=== PATIENT | female | born 1935 | race Asian ===

== ENCOUNTER 2019-01-12 11:47 | Inpatient (IN) | payer OTHER ==
[~2019-01-12] VITALS: Ht 152.4 cm; Wt 40.8 kg
[2019-01-12 11:49] VITALS: Ht 152.4 cm; Wt 40.8 kg
--- NOTE | 2019-01-12 12:04 | NUR ---
PT BIB [facility] FOR L SHOULDER/ARM PAIN AND L HIP PAIN S/P FALL YESTERDAY AT HOME. +PSC LIMITED MOVEMENT DUE TO PAIN, +SHORTENING AND EXTERNAL ROTATION NOTED. NO OBVIOUS BRUISING OR TRAUMA. PT GOWNED PLACED ON CM PT AAOX4 IN NO DISTRESS. MSE COMPLETED BY DR MOSHER. AWAITING MD ORDERS WILL MONITOR
--- NOTE | 2019-01-12 12:08 | NUR ---
PT TO XRAY VIA [facility]
--- NOTE | 2019-01-12 12:47 | NUR ---
PT MEDICATED PER MD ORDERS SEE EMAR. PT WITH URGE TO VOID. BED LOCK PROVIDED.
[2019-01-12 12:49] LABS: PLATELET COUNT 168 x10^3mcL (130-400)
[2019-01-12 12:50] LABS: BASOPHIL % 0 % (0-2)
[2019-01-12 13:03] LABS: ALBUMIN 3.8 g/dL (3.4-5.0); ALKALINE PHOSPHATASE 110 U/L (46-116); ALT/SGPT 33 U/L (14-59); AST/SGOT 32 U/L (15-37); BILIRUBIN TOTAL 1.28 mg/dL (0.20-1.00); CALCIUM 9.1 mg/dL (8.5-10.1); CARBON DIOXIDE 26.5 mmol/L (21-32); CHLORIDE SERUM 102 mmol/L (98-107); CREATININE SERUM 0.7 mg/dL (0.6-1.0); GLUCOSE SERUM 154 mg/dL (74-106); SODIUM SERUM 137 mmol/L (136-145); TOTAL PROTEIN, SERUM 7.3 g/dL (6.4-8.2)
[2019-01-12 13:06] LABS: POTASSIUM SERUM 5.7 mmol/L (3.5-5.1)
--- NOTE | 2019-01-12 14:12 | NUR ---
REPORT GIVEN TO RULA BARBER IN MED SURG FLOOR
--- NOTE | 2019-01-12 14:20 | NUR ---
PT TO MED SURG FLOOR VIA GURNEY TRANSPORTED BY [facility] IN NO DISTRESS. RULA RN RESUMING CARE OF PT.
--- NOTE | 2019-01-12 14:24 | NUR ---
RECEIVED PT [facility]IA [employer] FROM E/D, ACCOMPANIED BY TRANSPORTER AND PT'S FRIEND, DIRK STACK. PT A/A/O X 4, CALM, COOPERATIVE; WEARS GLASSES (W/ PT). DENIES CHEST PAIN OR DISCOMFORT AT THIS TIME. PT IS S/P FALL 01/11/19 AND SUFFERED FX TO L HUMERAL HEAD/NECK AND INTERTROCHANTERIC FX OF L FEMUR; PT W/ L-SIDED WEAKNESS BECAUSE OF THIS, FALL RISK PROTOCOL AND BED TRAPEZE IN PLACE; C/O INT SHARP L SHOULDER/HIP PAIN 10/20, EXACERBATED BY MOVEMENT, RELIEVED BY PAIN MEDICATION AND REST; PULSES PRESENT, +1 EDEMA TO L SHOULDER/HIP, SCD BY BEDSIDE; SKIN INTACT. PT WEARS FULL UPPER AND LOWER DENTURES. IV SIT RAC 22G, CDI. ORIENTED PT AND FRIEND TO ROOM, BED CONTROLS, CALL LIGHT SYSTEM. SIDE RAILS UP X 2, BED IN LOW POSITION. WILL ENDORSE TO ELISABETH HE.
[2019-01-12 14:50] LABS: T3 TOTAL 0.79 ng/mL
[2019-01-12 14:58] LABS: CHOLESTEROL/HDL RATIO 1.5
[2019-01-12 15:06] LABS: T4(THYROXINE) 8.2 ug/dL (4.7-13.3)
[2019-01-12 15:08] VITALS: BP 167/72
--- NOTE | 2019-01-12 17:02 | NUR ---
PHYSICAL THERAPY NOTE ASSEMBLED OVERHEAD TRAPEZE REQUESTED. NURSING AWARE.
--- NOTE | 2019-01-12 17:18 | NUR ---
AT 1515 - TOOK OVER CARE OF PATIENT. PATIENT IS AWAKE, ALERT AND ORIENTED X 4. FAMILY MEMBERS AT BEDSIDE. IV CURRENTLY INFUSING D5 1/2 NS AT 70 ML/HR. NOTED AREA OF ECCYMOSIS AND EDEMA ON LEFT HIP. PATIENT PLACED ON AIR MATTRESS AND POSITIONED FOR COMFORT. PATIENT HAS ORDER FOR KIRKPATRICK CATHETER INSERTION BUT PATIENT AND FAMILY REFUSING CATHETER. THEY SAY THAT PATIENT CAN USE BEDPAN INSTEAD. SEEN BY DR TEJADA. NEW ORDERS RECEIVED. PATIENT TO HAVE SURGERY ON THURSDAY. AT 1600 - GIVEN CARDIZAM SCHEDULED PER EMAR. MEDICATED FOR PAIN WITH IV MORPHINE. AT 1615 - PATIENT FITTED WITH LEFT ARM SLING PER ORDERS.
--- NOTE | 2019-01-12 17:28 | NUR ---
PHYSICAL THERAPY HAS SET UP OVER THE BED TRAPEZE FOR PATIENT USE.
[2019-01-12 17:32] VITALS: BP 155/74
--- NOTE | 2019-01-12 18:16 | NUR ---
PATIENT EATING DINNER. PATIENT APPEARS UNDER CONTROL AT THIS TIME. WILL ENDORSE CARE TO NIGHT NURSE.
--- NOTE | 2019-01-12 20:15 | NUR ---
COLLECTED URINE SPEC FOR UA + C&S SENT TO LAB.
--- NOTE | 2019-01-12 20:38 | NUR ---
PT AAO X4 VERBAL ABLE TO MAKE NEEDS KNOWN, WITH OVERHEAD TRAPEZE PT HAS LT HIP FRACTURE SUSTAINED FROM RECENT FALL, PLANNED SURGERY ON THURSDAY, SON SIGNED THE CONSENT FOR SURGERY EXPLAINED BY DR TEJADA, PT ALSO HAS LT SHOULDER SLING, FOR LT SHOULDER FX, NO C/O PAIN WHEN IMMOBILE, NO DISTRESS LUNGS CTA, AIR MATTRESS UTILIZED, FOR SKIN MANAGEMENT, IVF INFUSING WELL ORDERED, IV ACCESS RAC PATENT NON INFIL, SHIFT ASSESSMENT DONE, CONT TO MONITOR.
[2019-01-12 22:00] VITALS: BP 108/52
[2019-01-12 22:50] LABS: microscopic required? NO
--- NOTE | 2019-01-12 22:57 | NUR ---
PT AGREES TO HAVE KIRKPATRICK CATH INITIATION, TAMY WELL ASEPTIC TECHNIQUE OBSERVED, HAS YELLOW COLORED URINE OUTPUT, F/C SECURED.
[2019-01-12 23:21] LABS: UA SPECIFIC GRAVITY 1.015 (1.005-1.035); urine erythrocyte NEGATIVE (NEGATIVE)
--- NOTE | 2019-01-13 03:53 | NUR ---
PT SOUND ASLEEP NO S/SX OF PAIN OR DISCOMFORTS, IVF INFUSING WELL ORDERED UTIIZED OVERHEAD TRAPEZE, IVF INFUSING WELL ORDERED, VISUAL CHECKED AT INTERVALS.
[2019-01-13 05:11] VITALS: BP 113/65
--- NOTE | 2019-01-13 06:30 | NUR ---
PT SLEPT WELL DURING THE SHIFT, NO S/SX OF PAIN NO DISTRESS LUNGS CTA, IVF INFUSING WELL ORDERED, PUTTING OUT 1200 CC FROM KIRKPATRICK CATH YELLOW COLORED REPOSITIONED TO COMFORT, NO SIGNIFICANT CHANGES, CONT TO MONITOR.
--- NOTE | 2019-01-13 07:45 | NUR ---
AT 0700 - RECEIVED PATIENT FROM NIGHT NURSE. SLEEPING. RESPIRATIONS REGULAR. IV INFUSING NS AT 50 ML/HR. KIRKPATRICK CATHETER DRAINIGN YELLOW URINE. LEFT ARM IN SLING. PATIENT IS ON AIR MATTRESS.
[2019-01-13 08:32] VITALS: BP 124/59
[2019-01-13 09:56] LABS: BASOPHIL % 0.4 % (0-2); RED CELL DISTRIBUTION WIDTH 14.3 % (11.5-14.5)
--- NOTE | 2019-01-13 10:08 | NUR ---
PATIENT RESTING QUIETLY. WAS ABLE TO EAT BREAKFAST. NO C/O PAIN AT THIS TIME.
[2019-01-13 10:09] LABS: PLATELET COUNT 115 x10^3mcL (130-400)
[2019-01-13 10:46] LABS: CALCIUM 8.7 mg/dL (8.5-10.1); CARBON DIOXIDE 27.8 mmol/L (21-32); CHLORIDE SERUM 103 mmol/L (98-107); CREATININE SERUM 0.8 mg/dL (0.6-1.0); GLUCOSE SERUM 121 mg/dL (74-106); MAGNESIUM 1.9 mg/dL (1.8-2.4); PHOSPHOROUS 3.3 mg/dL (2.5-4.9); POTASSIUM SERUM 4.4 mmol/L (3.5-5.1); SODIUM SERUM 137 mmol/L (136-145)
--- NOTE | 2019-01-13 12:23 | NUR ---
SEEN BY DR PAUL AND MEDICAL TEAM DOCTORS DURING ROUNDS. SPOKE WITH PATIENT REGADING PLAN OF CARE. PATIENT REPORTS MINIMAL PAIN AT REST, THIS TIME.
--- NOTE | 2019-01-13 15:16 | NUR ---
SEEN BY DR ENRIQUEZ. PATIENT HAS CARDIAC CLEARANCE FOR SURGERY TOMORROW.
[2019-01-13 17:43] VITALS: BP 125/50
--- NOTE | 2019-01-13 18:05 | NUR ---
PATIENT RESTING QUIETLY. REPORTS MINIMAL PAIN. DECLINED PAIN MEDICATION. VSS. IV INFUSING NS AT 50ML/HR. 400 ML URINE OUTPUT THIS SHIFT. FAMILY AT BEDSIDE. FAMILY ASSISTS PATIENT WITH MEALS. TO BE NPO AFTER MIDNIGHT. WILL ENDORSE CARE TO NIGHT NURSE.
--- NOTE | 2019-01-13 20:02 | NUR ---
RECEIVED AWAKE IN BED , ALERT AND RESPONSIVE TO VERBAL STIMULI. SKIN WARM AND DRY TO TOUCH WITH ECCHYMOSIS TO LEFT THIG AND GILBERTO ,WITH LEFT ARM SLING IN PLACE. RESPIRATION EVEN AND UNLABORED. NO S/S OF ACUTE DISTRESS. KIRKPATRICK CATH TO BSD WITH BRYON COLORED URINE OUTPUT. IV SITE AT RAC LEAKING WITH REDNESS AROUND THE SITE. IV NEEDLE REMOVED , PT TOLERATED PROCEDURE WELL. PLACED CALL LIGHT WITHIN REACH.
--- NOTE | 2019-01-13 20:10 | NUR ---
STARTED A NEW IV ACCESS AT THE RFA USING G#20 WITH GOOD BLOOD FLOW RETURN, PT TOLERATED PROCEDURE WELL. IVF NS RESUMED AT 50ML/HR ORDERED .
[2019-01-13 20:52] VITALS: BP 119/48
--- NOTE | 2019-01-13 21:00 | NUR ---
C/O SEVERE PAIN AT THE LEFT HIP ON SCALE 8/10, MORPHINE 2MG IVP PRN MEDICATION. HEPARIN ON HOLD FOR [address] ROGERS , PT WILL HAVE SURGERY IN AM. PT MADE AWARE.
--- NOTE | 2019-01-13 23:50 | NUR ---
C/O NO BM FOR 2DAYS, PT EXPRESSED THE DESIRE TO HAVE BM BEFOR SURGERY IN AM . SUKHDEV ROGERS MADE AWARE WITH NEW ORDER AWAITNG FOR PHARMACY TO VERIFY THE NEW ORDERED MEDICATION.
--- NOTE | 2019-01-14 00:03 | NUR ---
MOM 30ML GIVEN PO PRN MEDICATION, WILL CONTINUE TO MONITOR.
--- NOTE | 2019-01-14 01:00 | NUR ---
ASSISTED WITH BEDPAN , PT CLAIMED WITH URGE TO HAVE BM, HOB EELVATED AT 45 DEGREES. CONTINUES ON IVF NS AT 50ML/HR TOLERATING WELL. NO BM NOTED. KEPT CLEAN AND DRY.
--- NOTE | 2019-01-14 02:05 | NUR ---
NO BASELINE CHAEST X-RAY, DR ROGERS MADE AWARE , NEW ORDER FOR CHEST X-RAY REQUESTED, WILL CONTINUE TO MONITOR.
[2019-01-14 05:15] VITALS: BP 125/59
--- NOTE | 2019-01-14 05:33 | NUR ---
NO BM YET AT THIS TIME, REMAINS NPO AFTER MIDNITE FOR ORLF LEFT HIP TODAY AT 0730 AM. IVF NS AT 50ML/HR INFUSING WELL VIA PERIPHERAL LINE AT THE RIGHT FOREARM. NO SWELLING/NO REDNESS NOTED AT THE IV SITE.
--- NOTE | 2019-01-14 06:30 | NUR ---
CHG BATH GIVEN , TOLERATED WELL.
--- NOTE | 2019-01-14 06:50 | NUR ---
REPORT GIVEN TO ALBERT. STRAUSS LOCKED, TO OR VIA BED ACCOMPANIED BY OR STAFFS. VITAL SIGNS STABLE.
--- NOTE | 2019-01-14 06:55 | NUR ---
PT TAKEN FOR PROCEDURE. NO S/S OF ACUTE DISTRESS. ENDORSED TO OR BY NOC ELISABETH SHARPE. TAKEN BY EDWIGE BY INFORMATION CLERK BROKERAGE KELLY.
[2019-01-14 07:54] LABS: BASOPHIL % 0.4 % (0-2)
[2019-01-14 07:59] LABS: CALCIUM 8.1 mg/dL (8.5-10.1); CARBON DIOXIDE 23.6 mmol/L (21-32); CHLORIDE SERUM 107 mmol/L (98-107); CREATININE SERUM 0.5 mg/dL (0.6-1.0); GLUCOSE SERUM 100 mg/dL (74-106); MAGNESIUM 2.2 mg/dL (1.8-2.4); PHOSPHOROUS 2.4 mg/dL (2.5-4.9); POTASSIUM SERUM 3.7 mmol/L (3.5-5.1); SODIUM SERUM 140 mmol/L (136-145)
[2019-01-14 08:09] LABS: PLATELET COUNT 111 x10^3mcL (130-400)
[2019-01-14 09:45] VITALS: BP 129/67
--- NOTE | 2019-01-14 09:45 | NUR ---
PT BACK FROM PROCEDURE. AWAKE, ALERT, ORIENTED X4. NO S/S OF ACUTE DISTRESS. NO C/O PAIN. NO SOB ON 1LNC. O2 SAT 96%. RR EVEN/UNLABORED. CHEST EXPANSION SYMMETRICAL. NO CHEST PAIN. MED SURG. CALM/COOPERATIVE. IV WNL TO RFA, PATENT AND FLUSHES WELL. IV FLUIDS FLOWING. SCDS IN PLACE. S/P ORIF LEFT HIP. DRESSINGS IN PLACE X2. CDI. SPLINT TO LUE IN PLACE. FACE SYMMETRICAL. SPEECH CLEAR. NO DAVIS. NO DIZZINESS. NO N/V. TRAPEZE IN PLACE. FALL PRECAUTIONS IN PLACE. BED IN LOW POSITION. CALL LIGHT WITHIN REACH. SON AND FRIEND AT BEDSIDE. SIDE RAILS UP X2. INSTRUCTED TO USE CALL LIGHT TO CALL FOR ASSISTANCE PRN. VERBALIZED UNDERSTANDING. WILL CONT. TO MONITOR.
[2019-01-14 11:41] VITALS: BP 122/52
--- NOTE | 2019-01-14 12:00 | NUR ---
PT LAYING IN BED. AA/OX4. NO S/S OF ACUTE DISTRESS. NO C/O PAIN AT THIS TIME. NO FEVER. NO CHILLS. NO SOB ON 1LNC. NO CHEST PAIN. CALM/COOPERATIVE. DRESSING TO RLE CDI. IV WNL, IV FLUIDS FLOWING. TRAPEZE IN PLACE. FRIEND AT BEDSIDE. BED IN LOW POSITION. CALL LIGHT WITHIN REACH. WILL CONTINUE TO MONITOR.
--- NOTE | 2019-01-14 13:50 | NUR ---
1. Recommend continuing regular diet at this time
--- NOTE | 2019-01-14 13:50 | NUR ---
Initial Nutrition Assessment: 251/B PAUL LINDSAY IA HR Dx: Left hip fracture PMHx: HTN, RA, Osteoporosis PSHx: none Labs: P 2.4L, HGB 8.5L Meds: Cardizem, Colace, morphine, norco, zofran Diet: NPO for sx PO intake since admission: (01/13) lunch 100%, breakfast 40%, (01/12) dinner 50% Ht: 152.4cm (60") Wt: 40.8 kg (89#) BMI: 17.6 kg/m2 Bed scale: 40.7 kg IBW: 100# (45 kg) %IBW: 89 UBW: 40-41 kg Age: 83/F Food Allergies: NKFA Skin: ecchymosis, L thigh Darius: 16 Edema: L thigh, GILBERTO GI: Last BM: 01/11 Pt is a 83-year-old Mohawk speaking female with PMH of HTN, RA and Osteoarthritis who was brought in by a ambulance for left-sided shoulder and left-sided hip pain after mechanical ground level fall that happened yesterday. RD Note (01/14): Patient's son was at bedside who spoke Serbian and said that patient was NPO for surgery but is now very hungry post-op. She does not c/o N/V/D/C at this time. Spoke with YUSUF Nicole to advance her diet. Diet was advanced to regular. Problem with: N/V/D/C: none at this time Problems with: Chewing: Swallowing: none Current appetite: good Recent wt change: none %wt change: n/a Vitamin/Supplement use: vitamin D, C Special diet at home: Regular Physical activity: sedentary Nutrition education given: none provided at this time. Patient did not have any diet/nutrition related questions. Food-drug interactions: none Education given: n/a Estimated Nutritional Needs Based on current body weight (40.8 kg) Energy: 7521-6868 kcal/day (30-35 kcal/kg for weight gain) Protein: 49-57 g/day (1.2-1.4 g/kg for geriatric maintenance, preserve LBM) Fluid: 0249-6561 mL/day (1 mL/kcal) Nutrition Diagnosis: 1. Malnutrition related to advanced age, falls as evidenced by BMI 17.6 kg/m2 Intervention 1. Recommend continuing regular diet at this time Monitor/Evaluate Goal: PO intake at least 75% of estimated needs Monitor: PO intake, Labs, GI function F/U in 2-3 days as high risk 01/16-
--- NOTE | 2019-01-14 14:45 | NUR ---
PT COMPLAINED OF LLE PAIN AT SURGICAL SITE, WORSE WITH MOVEMENT. RATES 6/10, CONTINUOUS, GIVEN PO PAIN MED, SEE MAR. PT REASSESS, FOUND RESTING IN BED WITH BOTH EYES CLOSED. NO S/S OF PAIN. CALM/COOPERATIVE. IV WNL TO RFA, PATENT AND FLUSHES WELL. IV FLUIDS FLOWING. FALL PREC. IN PLACE. TRAPEZE IN PLACE. SCDS TO BLE. KIRKPATRICK IN TACT DRAINING TO GRAVITY. BED IN LOW POSITION. CALL LIGHT WITHIN REACH. WILL CONTINUE TO MONITOR.
[2019-01-14 16:26] VITALS: BP 113/48
--- NOTE | 2019-01-14 17:12 | NUR ---
RESTING IN BED WITH BOTH EYES CLOSED. NO S/S OF ACUTE DISTRESS. NO S/S OF PAIN. CALM/COOPERATIVE. DRESSING TO LLE CDI. SLING IN PLACE TO LUE. IV WNL TO RFA, IV FLUIDS FLOWING. FALL PREC IN PLACE. SIDE RAILS UP X2. NO N/V. NO SOB ON ROOM AIR. NO CHEST PAIN. TRAPEZE IN PLACE. BED IN LOW POSITION. CALL LIGHT WITHIN REACH. WILL CONTINUE TO MONITOR.
--- NOTE | 2019-01-14 18:42 | NUR ---
PT LAYING IN BED EATING DINNER. AA/OX4. NO S/S OF ACUTE DISTRESS. C/O MILD PAIN TO LLE, RATES 4/10, WORSE WITH MOVEMENT. REPORTS TOLERABLE AT THIS TIME. NO S/S OF ACUTE DISTRESS. NO SOB ON ROOM AIR. IV WNL, IV FLUIDS FLOWING. FALL PREC IN PLACE. NO CHEST PAIN. PT CALM/COOPERATIVE. FRIEND AT BEDSIDE. TRAPEZE IN PLACE. BED IN LOW POSITION. CALL LIGHT WITHIN REACH. WILL ENDORSE TO ONCOMING SHIFT.
--- NOTE | 2019-01-14 19:06 | NUR ---
PT C/O OF TO LLE, CONTINUOUS. WORSE WITH MOVEMENT. RATES 6/10. PULSES +2 BLE/BLE. CAP REFILLS <3 SEC BUE/BLE. ABLE TO MOVE FINGERS/TOES. SLING IN PLACE TO LUE. DRESSING CDI TO LLE. PT CALM/COOPERATIVE. BED IN LOW POSITION. CALL LIGHT WITHIN REACH. WILL ENDORSE TO ONCOMING SHIFT.
--- NOTE | 2019-01-14 20:00 | NUR ---
RECEIVED PT IN BED, RESTING QUIETLY. A/O X4. DENIES HEADACHE/DIZZINESS. RESP. EVEN AND UNLABORED. ON ROOM AIR, NO ACUTE DISTRESS NOTED. AFEBRILE AND VITAL SIGNS STABLE/ DENIES PAIN OR ANY DISCOMFORT AT THIS TIME. LT HIP DRESSINGS DRY AND INTACT. ECCHYMOSIS TO LUE AND LLE. ON AIR MATTRESS, LT ARM SLING IN PLACE, KEPT COMFORTABLE IN BED. ABLE TO MOVE ALL EXTS. PEDAL PULSES PALPABLE. KIRKPATRICK CATH INTACT AND DRAINING YELLOW COLOR URINE. IVF, NS AT 50ML/HR, INTACT AND INFUSING VIA RFA, SITE CLEAR. CALL LIGHT WITHIN REACH. WILL CONTINUE TO MONITOR.
[2019-01-14 20:52] VITALS: BP 105/54
[2019-01-15] VITALS (7 sets, daily range): BP systolic 103–125; BP diastolic 43–54
--- NOTE | 2019-01-15 01:44 | NUR ---
RESTING QUIETLY IN BED, WITH EYES CLOSED, APPEARS ASLEEP, EASILY AROUSABLE. RESP. EVEN AND UNLABORED. ON ROOM AIR, NO ACUTE DISTRESS NOTED. IVF INTACT AND INFUSING WELL, SITE CLEAR. REPOSITIONED FOR COMFORT. CALL LIGHT WITHIN REACH. WILL CONTINUE TO MONITOR.
--- NOTE | 2019-01-15 06:13 | NUR ---
SLEPT WELL. NO COMPLAINTS NOTED DURING THE NIGHT. RESP. EVEN AND UNLABORED. NO ACUTE DISTRESS NOTED. AFEBRILE AND VITAL SIGNS STABLE. NO COMPLAINTS OF PAIN OR ANY DISCOMFORT. DUE MEDS GIVEN ORDERED, TAMY. WELL. KIRKPATRICK CATH INTACT AND PATENT. TURNED AND REPOSITIONED . CARE DONE. KEPT COMFORTABLE. HIP DRESSINGS, DRY AND INTACT. IVF INTACT AND INFUSING WELL, SITE CLEAR. CALL LIGHT WITHIN REACH. WILL CONTINUE TO MONITOR.
[2019-01-15 06:42] LABS: CALCIUM 7.4 mg/dL (8.5-10.1); CARBON DIOXIDE 25.5 mmol/L (21-32); CHLORIDE SERUM 107 mmol/L (98-107); CREATININE SERUM 0.6 mg/dL (0.6-1.0); GLUCOSE SERUM 109 mg/dL (74-106); POTASSIUM SERUM 4.9 mmol/L (3.5-5.1); SODIUM SERUM 140 mmol/L (136-145)
--- NOTE | 2019-01-15 07:37 | NUR ---
PT LYING IN BED A/A. BREATHING EQUAL/ UNLABORED ON RA. NO REDNESS/ SWELLING TO IV SITE. NS RUNNING AT 50ML/HR. SURGICAL DRESSINGS TO L. LEG. CDI. DAMION HAS SLING IN PLACE. PT C/O MILD L. SHOULDER PAIN, COMFORT MEASURES IMPLEMENTED. BED IN LOW POSITION, CALL LIGHT IN REACH, FALL PRECAUTIONS IN PLACE. WILL CONTINUE TO [facility]
[2019-01-15 09:02] LABS: BASOPHIL % 0.8 % (0-2)
[2019-01-15 09:04] LABS: PLATELET COUNT 119 x10^3mcL (130-400)
[2019-01-15 11:23] LABS: rbc morphology (normal/abnorm) ABNORMAL (NORMAL)
--- NOTE | 2019-01-15 12:31 | NUR ---
PT BLOOD TRANSFUSION STARTED, RUNNING AT 60ML/HR. VSS. PT EDUCATED REGARDING S/SX AND REACTIONS PRIOR TO STARTING. NO ADVERSE REACTIONS NOTED AT THIS TIME. WILL CONTINUE TO MONITOR
--- NOTE | 2019-01-15 15:42 | NUR ---
PT BLOOD TRANSFUSION DONE, VSS. NO ADVERESE EVENTS NOTED. BED IN LOW POSITION, CALL LIGHT IN REACH, FAMILY AT BED SIDE. WILL CONTINUE TO MONITOR
--- NOTE | 2019-01-15 16:23 | NUR ---
PT REPOSITIONED TO R. SIDE, ON AIR MATRESS, PRESSURE OFFLOADING TO BLE. PT STATED THAT SHE ONLY WANTS TO BE TURNED 1 HR AFTER SHE RECEIVES PAIN MEDICATION. DAUGHTER PRESENT AT BED SIDE. WILL CONTINUE TO MONITOR
--- NOTE | 2019-01-15 17:49 | NUR ---
KIRKPATRICK CARE PROVIDED TO PT. KIRKPATRICK FLOWING TO GRAVITY. URINE CLEAR/ YELLOW. NO C/O PAIN/ DISCOMFORT AT THIS TIME. WILL CONTINUE TO MONITOR
--- NOTE | 2019-01-15 18:47 | NUR ---
PT LYING IN BED A/A. BRETHING EQUAL/ UNLABORED ON 1L VIA NC. IVF RUNNING AT 50ML/HR. NO REDNESS/ SWELLING TO IV SITE. KIRKPATRICK FLOWING TO GRAVITY. SURGICAL DRESSINGS CDI. L. ARM SLING IN PLACE. PT C/O PAIN WHEN MOVING. PT REFUSED PAIN MEDICATIONS/ REPOSITION AT THIS TIME. PT ON AIR MATRESS/ OFFLOADING TO BLE. SCD'S IN PLACE. BED IN LOW POSITION, CALL LIGHT IN REACH, FRIEND AT BEDSIDE. WILL ENDORSE TO ON COMING SHIFT
--- NOTE | 2019-01-15 20:00 | NUR ---
RECEIVED PT IN BED, ALERT AND ORIENTED. ABLE TO VERBALIZE NEEDS. RESP. EVEN AND UNLABORED. LUNG SOUNDS CLEAR BILAT. 02 AT 2L/MIN VIA NC, SAT. 99%. DENIES SOB. NO ACUTE DISTRESS NOTED. AFEBRILE AND VITAL SIGNS STABLE. DRESSINGS TO LT HIP , DRY AND INTACT. NO COMPLAINTS OF PAIN OR ANY DISCOMFORT AT THIS TIME. LT ARM SLING IN PLACE,ON AIR MATTRESS.ABLE TO MOVE EXTS. REPOSITIONED FOR COMFORT.KIRKPATRICK CATH INTACT AND DRAINING YELLOW URINE. IVF, NS AT 50ML/HR, INTACT AND INFUSING VIA RFA, SITE CLEAR. CALL LIGHT WITHIN REACH. WILL CONTINUE TO MONITOR.
--- NOTE | 2019-01-15 22:02 | NUR ---
COMPLAINED OF LT HIP SURG. SITES PAIN, 5/10, MEDICATED WITH NORCO ORDERED WITH RELIEF. WILL CONTINUE TO MONITOR.
--- NOTE | 2019-01-16 01:08 | NUR ---
EYES CLOSED, APPEARS ASLEEP, EASILY AROUSABLE. RESP. EVEN AND UNLABORED. NO ACUTE DISTRESS NOTED. CALL LIGHT WITHIN REACH. WILL CONTINUE TO MONITOR.
[2019-01-16 05:18] VITALS: BP 126/61
[2019-01-16 06:29] LABS: BASOPHIL % 0.6 % (0-2)
[2019-01-16 06:42] LABS: PLATELET COUNT 125 x10^3mcL (130-400); RED CELL DISTRIBUTION WIDTH 15.3 % (11.5-14.5)
--- NOTE | 2019-01-16 06:44 | NUR ---
AFEBRILE AND VITAL SIGNS STABLE. RESP. EVEN AND UNLABORED. NO ACUTE DISTRESS NOTED.SLEPT WELL. DUE MEDS GIVEN ORDERED, TAMY. WELL. DRESSINGS TO LT HIP, DRY AND INTACT. TURNED AND REPOSITIONED Q2HRS AND PRN. KIRKPATRICK CATH INTACT AN DPATENT. CARE DONE. KEPT COMFORTABLE. IVF INTACT AND INFUSING WELL, SITE CLEAR.WILL ENDORSE TO INCOMING NURSE.
[2019-01-16 06:58] LABS: CALCIUM 7.2 mg/dL (8.5-10.1); CARBON DIOXIDE 24.8 mmol/L (21-32); CHLORIDE SERUM 107 mmol/L (98-107); CREATININE SERUM 0.5 mg/dL (0.6-1.0); GLUCOSE SERUM 91 mg/dL (74-106); POTASSIUM SERUM 4.4 mmol/L (3.5-5.1); SODIUM SERUM 139 mmol/L (136-145)
--- NOTE | 2019-01-16 07:25 | NUR ---
SEEN IN BED AWAKE, ALERT, ORIENTED X4. BREATHING E/U ON O2 1LPM VIA N/C. LUNG SOUND CTA. S/P LT HIP ORIF, DRSG X2 TO LEFT HIP DRY/INTACT. LT ARM SLING INPLACE. STATED PAIN IS 5/10 ON PAIN SCALE. ON AIRLOSS MATTRESS, WILL BE TURNED&REPOSITIONED Q 2HRS. SCD TO BLE INPLACE. ON HEPARIN SQ PROPHYLAXIS. IVF NS TO RFA INFUSING WELL. CALL LIGHT PLACED WITHIN EASY REACH. SIDERAILS UP X2.
[2019-01-16 07:33] VITALS: BP 120/58
--- NOTE | 2019-01-16 08:17 | NUR ---
NORCO 1 TAB PO GIVEN FOR LEFT HIP SURGICAL SITE PAIN. AM SCHEDULED MEDS GIVEN. NO ASPIRATION OR COUGH. CALL LIGHT INSTRUCTED AND PLACED WITHIN EASY REACH. SIDERAILS UP X2.
--- NOTE | 2019-01-16 09:00 | NUR ---
PATIENT'S SON AT BEDSIDE. UPDATED PLAN OF CARE.
--- NOTE | 2019-01-16 09:15 | NUR ---
SEEN BY YUSUF WELLS.
--- NOTE | 2019-01-16 13:03 | NUR ---
FINISHED 50% OF LUNCH ASSISTED BY HER SON. NORCO 1 TAB PO GIVEN FOR LT HIP SURGICAL SITE PAIN. IVF NS TO RFA INFUSING WELL.
[2019-01-16 16:39] VITALS: BP 104/43
--- NOTE | 2019-01-16 17:44 | NUR ---
GETACHEW GIVEN X1 TODAY FOR LT HIP PAIN WITH GOOD RELIEF. PARTIAL BEDBATH DONE, NEW BILL CHANGED, OPTIFOAM TO COCCYX INPLACE. ALL DUE MEDS GIVEN. IVF TO RFA INFUSING WELL AT 50ML/HR.
--- NOTE | 2019-01-16 19:30 | NUR ---
RECIEVED PT IN NO ACUTE DISTRESS. AOX4. MED SURG. BREATHING E/U. PULSES PALPABLE. TRACE EDEMA TO L SHOULDER AND L HIP. DRESSING X 2 TO L HIP, CDI, S/P L HIP ORIF 01/14. ECCHYMOSIS TO L HIP AND L SHOULDER, SLING IN PLACE. OPTIFOAM TO SACRAL-COCCYX, CDI. ON AIR MATTRESS. C/O L SIDED PAIN 10/20, WILL MEDICATE PER EMAR. IV TO RFA, PATENT. BED IN LOWEST POSITION, 2 SIDE RAILS UP, CALL LIGHT IN REACH. INSTRUCTED TO CALL FOR ASSISTANCE.
[2019-01-16 20:45] VITALS: BP 106/45
--- NOTE | 2019-01-17 00:37 | NUR ---
RESTING IN BED WITH EYES CLOSED. BREATHING E/U. NO ACUTE DISTRESS NOTED. WILL CONTINUE TO MONITOR.
--- NOTE | 2019-01-17 01:19 | NUR ---
RESTING IN BED WITH EYES CLOSED. BREATHING E/U. NO ACUTE DISTRESS NOTED. WILL CONTINUE TO MONITOR.
[2019-01-17 04:28] VITALS: BP 133/68
--- NOTE | 2019-01-17 06:24 | NUR ---
NO ACUTE CHANGES. NO ACUTE DISTRESS NOTED. WILL ENDORSE TO ONCOMING RN.
--- NOTE | 2019-01-17 07:15 | NUR ---
AAO X4.C/O L HIP PAIN AT 6/10 PAIN SCALE.PT WAS JUST MEDICATED WITH NORCO AT 0500 BY NOC RN.LUNGS CLEAR.PT NON-TELE.IVF NS GOING AT 50 ML/HR INFUSING WELL.L HIP WITH DRESSING CDI.ECCHYMOSIS NOTED AROUND THE DRESSING.S/P L HIP ORIF ON 01/14.ALSO L SHOULDER WITH SLING.TRAPEZE BAR IN PLACE.KIRKPATRICK DRAINING TO GRAVITY YELLOW IN COLOR.CALL LIGHT WITHIN REACH,INSTRUCTED TO CALL FOR ANY PAIN/DISCOMFORT.WILL CONTINUE TO MONITOR PT.
[2019-01-17 07:38] VITALS: BP 122/62
[2019-01-17 08:55] LABS: BASOPHIL % 0.2 % (0-2); PLATELET COUNT 153 x10^3mcL (130-400); RED CELL DISTRIBUTION WIDTH 14.9 % (11.5-14.5)
--- NOTE | 2019-01-17 10:45 | NUR ---
GAVE PT DILAUDID 0.5 MG IVP FOR C/O L HIP PAIN AT 8 PAINSCALE.WILL CONTINUE TO MONITOR PT.
[2019-01-17] MEDS ORDERED: NORCO1 TA2 PO (11:32)
[2019-01-17] MEDS ORDERED: FERROUS SULFAT325 M2 PO (11:32)
[2019-01-17] MEDS ORDERED: CARDIZEM CD180 MG PO (11:32)
[2019-01-17] MEDS ORDERED: COLACE100 MG PO (11:32)
--- NOTE | 2019-01-17 11:45 | NUR ---
PER DENTAL LABORATORY TECHNICIAN APPRENTICE PT HAS 2X BM AND IT'S LOOSE.
--- NOTE | 2019-01-17 12:19 | NUR ---
Follow-up Nutrition Assessment: 251/B PAUL LINDSAY FU HR Dx: Left hip fracture PMHx: HTN, RA, Osteoporosis Labs: (01/16) HGB 7.8L, CA 7.2L Meds: Cardizem, Colace, senokot, norco, Zofran, heparin Diet: regular PO Intake: (01/16) Dinner 50%, lunch 60%, breakfast 100%, (01/15) lunch, dinner 80%, breakfast 40% Weights: (01/12) 40.8 kg, (01/17) 40.7 kg I/Os: (01/16) 3340/825 (1015) Skin: purple discoloration to L hip and shoulder Darius: 16 Edema: L hip and L shoulder trace edema GI: small, hard stools Last BM: 01/16 Note (01/17): Patient was alert and oriented with daughter at bedside. Patient said that she ate some breakfast this morning and does not have any N/V/D/C at this time. Patient awaiting placement. Estimated Nutritional Needs Based on current body weight (40.8 kg) Energy: 0210-4212 kcal/day (30-35 kcal/kg for weight gain) Protein: 49-57 g/day (1.2-1.4 g/kg for geriatric maintenance, preserve LBM) Fluid: 9637-8863 mL/day (1 mL/kcal) Nutrition Diagnosis: 1. Malnutrition related to advanced age, falls as evidenced by BMI 17.6 kg/m2 . (ongoing) Intervention: 1. Recommend continuing regular diet at this time. 2. Recommend ONS Ensure BID. This will provide additional 700 kcal and 40g protein/day. Discussed recommendations with YUSUF Nicole. Monitor/Evaluate: Goal: Have pt meet at least 75% of estimated needs Monitor: PO intake, Labs, GI function F/U in 3-5 days as moderate risk 01/20-
[2019-01-17 13:19] VITALS: BP 122/62
--- NOTE | 2019-01-17 14:56 | NUR ---
PHYSICAL THERAPY DAILY NOTES CO-SIGN All documentation done by the Spanish Interpreter for 01/17/19 has been reviewed. I agree with the documentation. Reviewed/Co-Signed by: Debra Hart PT Documentation Done by: MARYSE PARHAM PTA
--- NOTE | 2019-01-17 15:30 | NUR ---
INFORMED BY CHARGE NURSE [facility]PAPERWORK STARTED.PT SIGNED CONSENT FOR TRANSFER.
--- NOTE | 2019-01-17 16:08 | NUR ---
TOOK PICTURES ON [facility] SURGICAL SITE.CLEANED AND COVERED WITH ISLAND DRESSING.
--- NOTE | 2019-01-17 16:44 | NUR ---
REPORT GIVEN TO MAR HUERTAS FIRE SPRINKLER DESIGNER.ALSO PT REFUSE FLU VACCINE.SHE SAID NOT RIGHT NOW.INFORMED ALEKSANDAR.ALSO INFORMED HER OF THE PICK-UP TIME AT 1830.
[2019-01-17 17:32] VITALS: BP 140/63
--- NOTE | 2019-01-17 18:37 | NUR ---
AWAITING FOR TRANSPORT TO ENTERTAINMENT DIRECTOR PT.
--- NOTE | 2019-01-17 19:00 | NUR ---
PATIENT TRANSPORTED TO [facility] BY EMS AT THIS TIME. PATIENT HAS ALL PERSONAL BELONGINGS.
== END 2019-01-17 19:10 | DRG 481 ==
LOC: ED 11:47 → MU 13:54
PROVIDERS: Emergency Medicine; Neuromusculoskeletal Medicine, Sports Medicine; ADMIT Internal Medicine
PROC: 0PSDXZZ Reposition Left Humeral Head, External Approach (ICD-10-PCS; 2019-01-14)
PROC: 0QS704Z Reposition Left Upper Femur with Internal Fixation Device, Open Approach (ICD-10-PCS; principal; 2019-01-14 07:30)
PROC: 30233N1 Transfusion of Nonautologous Red Blood Cells into Peripheral Vein, Percutaneous Approach (ICD-10-PCS; 2019-01-15)
DX: M80.852A Other osteoporosis with current pathological fracture, left femur, initial encounter for fracture (principal); Z68.1 Body mass index [BMI] 19.9 or less, adult; M80.822A Other osteoporosis with current pathological fracture, left humerus, initial encounter for fracture; M06.9 Rheumatoid arthritis, unspecified; E87.5 Hyperkalemia; D64.9 Anemia, unspecified; I10 Essential (primary) hypertension
CPT/HCPCS: 76001; 83880; 84439; 97110-GP; 97530-GP; C1713; G0378; J0690; J1170; J1644; J2175; J2270; J2405; J2704; J3010; J3490; J7030; J7040; J7120; P9016; Q0092; Q0163

== ENCOUNTER 2019-12-24 06:33 | Emergency (ER) | payer OTHER ==
[~2019-12-24 06:33] MED LIST: CARDIZEM CD180 MG PO; COLACE100 MG PO; FERROUS SULFAT325 M2 PO; NORCO1 TA2 PO
[2019-12-24 09:38] VITALS: BP 159/69
== END 2019-12-24 09:38 | disposition home or self-care (01) ==
LOC: ED 06:33
DX: R07.89 Other chest pain (principal); S09.8XXA Other specified injuries of head, initial encounter; I10 Essential (primary) hypertension; W01.0XXA Fall on same level from slipping, tripping and stumbling without subsequent striking against object, initial encounter; Y93.89 Activity, other specified; Y92.89 Other specified places as the place of occurrence of the external cause; Y99.8 Other external cause status